=== PATIENT | male | born 1930 | race Caucasian/White ===

== ENCOUNTER 2020-09-28 18:09 | Emergency (ER) | payer OTHER ==
[2020-09-28 18:36] LABS: Protime INR 1.45
[2020-09-28 18:38] LABS: Absolute Lymphocytes (CBC) 1.4 K/uL (0.7-4.9); Basophils % 0.4 % (0-1.3); Hematocrit 24.4 % (39.6-49.0); RBC Red Blood Cell Count 3.61 M/uL (4.33-5.43)
[2020-09-28 18:53] LABS: Albumin 3.1 g/dL (3.4-5.0); Bilirubin Direct 0.2 mg/dL (0-0.2); Bilirubin Total 0.3 mg/dL (0.2-1.0); Potassium 4.8 mmol/L (3.5-5.1); Protein, Total 6.9 g/dL (6.4-8.2); Troponin (Emerg Dept Use Only) 0.03 ng/mL (0.0-0.045)
--- NOTE | 2020-09-28 19:17 | RAD REPORT ---
EXAM DESCRIPTION: RAD - Chest Single View - 09/28/2020 6:36 pm CLINICAL HISTORY: CHEST PAIN COMPARISON: No comparisons FINDINGS: No evidence of edema or pneumonia. Cardiomegaly. Pacemaker. Atherosclerosis.No acute osseo us abnormality. No significant pleural effusions or pneumothorax. IMPRESSION: No acute cardiopulmonary disease.
[2020-09-28 19:32] LABS: Blood Morphology Comment NOTED (NOT SEEN); Hypochromasia 1+; Platelet Estimate DECR; White Blood Cell Scan OK (OK)
--- NOTE | 2020-09-28 20:43 | RAD REPORT ---
EXAM DESCRIPTION: CT - Abdomen Pelvis Wo Contrast - 09/28/2020 8:27 pm CLINICAL HISTORY: Abdominal pain. Abd pain;GI bleed COMPARISON: No comparisons TECHNIQUE: CT imaging of the abdomen and pelvis was performed without contrast. Solid organ, bowel a nd vascular assessment is limited due to lack of IV and oral contrast. All CT scans are performed using dose optimization technique as appropriate and may include automated exposure control or mA/KV adjustment according to patient size. FINDINGS: Atelectasis versus scarring at the right lung base. Pacemaker leads. Aortic valve calcific ations. Coronary artery calcifications. Small hiatal hernia. No focal liver lesions are identified. The gallbladder is surgically absent. No adrenal masses are se en. No splenic lesions. The pancreas is within normal limits. No stones or hydronephrosis. Fat contai mary inguinal hernias. Moderate stool within the rectum. No bowel obstruction, free air, free fluid or abscess. Degenerative changes are present in the spine. IMPRESSION: No acute intra-abdominal or pelvic findings. Incidental findings as noted above. A limited non-contrast examination was performed as detailed.
[2020-09-28] MEDS ORDERED: PANTOPRAZOLE 40 MG INJ ONE (21:41)
--- NOTE | 2020-09-29 01:19 | ER ---
Nurse's Notes [facility] Name: Paolo Gamble Age: 89 yrs Sex: Male : 1930 Arrival Date: 09/28/2020 Time: 18:16 Bed 7 Private MD: Diagnosis: Chest pain, unspecified;GI Bleed Presentation: 09/28 18:28 Chief complaint: EMS states: patient was having bilateral chest pain. complains of ap3 cough X 3 days. patient is from [facility]. Coronavirus screen: Client presents with at least one sign or symptom that may indicate coronavirus-19. Standard/surgical mask placed on the client. Ebola Screen: No symptoms or risks identified at this time. Initial Sepsis Screen: Does the patient meet any 2 criteria? No. Patient's initial sepsis screen is negative. Does the patient have a suspected source of infection? No. Patient's initial sepsis screen is negative. Risk Assessment: Do you want to hurt yourself or someone else? Patient reports no desire to harm self or others. Onset of symptoms was September 28, 2020 at 17:15. Care prior to arrival:. 18:28 Method Of Arrival: EMS: [facility] ap3 18:28 Acuity: JOSELYN 3 ap3 Historical: - Allergies: 18:30 No Known Allergies; ap3 - Home Meds: 18:30 Eliquis oral [Active]; unknown BP meds [Active]; unknown DM medications [Active]; ap3 - PMHx: 18:30 Hypertensive disorder; Diabetes mellitus; ap3 - PSHx: 18:30 pacemaker; ap3 - Immunization history:: Adult Immunizations up to date, Client reports receiving the 2nd dose of the Covid vaccine, Date received: June 2020. - Social history:: Smoking status: Patient denies any tobacco usage or history of. Screenin:30 Abuse screen: Denies threats or abuse. Nutritional screening: No deficits noted. ap3 Tuberculosis screening: No symptoms or risk factors identified. Fall Risk None identified. Assessment: 18:32 General: Appears in no apparent distress. comfortable, Behavior is calm, cooperative, ap3 appropriate for age. Pain: Pain does not radiate. Pain: Complains of pain in right lateral anterior chest and left lateral anterior chest Pain currently is 4 out of 10 on a pain scale. Pain began 1 day ago. Neuro: Level of Consciousness is awake, alert, obeys commands, Oriented to person, place, time, situation, Appropriate for age Moves all extremities. Gait is steady, Speech is normal. Cardiovascular: Reports chest pain, Denies shortness of breath, Capillary refill < 3 seconds Patient's skin is warm and dry. Respiratory: Reports cough that is since 2-3 days Airway is patent Respiratory effort is even, unlabored, Respiratory pattern is regular, symmetrical. GI: No signs and/or symptoms were reported involving the gastrointestinal system. : No signs and/or symptoms were reported regarding the genitourinary system. 19:00 Reassessment: Patient appears in no apparent distress at this time. Patient and/or jb4 family updated on plan of care and expected duration. Pain level reassessed. Patient is alert, oriented x 3, equal unlabored respirations, skin warm/dry/pink. 20:00 Reassessment: Patient appears in no apparent distress at this time. Patient and/or jb4 family updated on plan of care and expected duration. Pain level reassessed. Patient is alert, oriented x 3, equal unlabored respirations, skin warm/dry/pink. 21:00 Reassessment: Patient appears in no apparent distress at this time. Patient and/or jb4 family updated on plan of care and expected duration. Pain level reassessed. Patient is alert, oriented x 3, equal unlabored respirations, skin warm/dry/pink. 22:00 Reassessment: Patient appears in no apparent distress at this time. Patient and/or jb4 family updated on plan of care and expected duration. Pain level reassessed. Patient is alert, oriented x 3, equal unlabored respirations, skin warm/dry/pink. 23:00 Reassessment: Patient appears in no apparent distress at this time. Patient and/or jb4 family updated on plan of care and expected duration. Pain level reassessed. Patient is alert, oriented x 3, equal unlabored respirations, skin warm/dry/pink. 09/29 00:00 Reassessment: Patient appears in no apparent distress at this time. Patient and/or jb4 family updated on plan of care and expected duration. Pain level reassessed. Patient is alert, oriented x 3, equal unlabored respirations, skin warm/dry/pink. :00 Reassessment: Patient appears in no apparent distress at this time. Patient and/or jb4 family updated on plan of care and expected duration. Pain level reassessed. Patient is alert, oriented x 3, equal unlabored respirations, skin warm/dry/pink. 02:00 Reassessment: Patient appears in no apparent distress at this time. Patient and/or jb4 family updated on plan of care and expected duration. Pain level reassessed. Patient is alert, oriented x 3, equal unlabored respirations, skin warm/dry/pink. 03:00 Reassessment: Patient appears in no apparent distress at this time. Patient and/or jb4 family updated on plan of care and expected duration. Pain level reassessed. Patient is alert, oriented x 3, equal unlabored respirations, skin warm/dry/pink. 03:30 Reassessment: Patient appears in no apparent distress at this time. Patient and/or jb4 family updated on plan of care and expected duration. Pain level reassessed. Patient is alert, oriented x 3, equal unlabored respirations, skin warm/dry/pink. Report given to EMS, Pt transferred to receiving facility. Vital Signs: 09/28 18:28 BP 105 / 69; Pulse 77; Resp 23; Temp 98.4; Pulse Ox 99% on R/A; Pain 4/10; ap3 19:00 BP 130 / 57; Pulse 78; Resp 18; Pulse Ox 100% on R/A; jb4 20:00 BP 133 / 77; Pulse 75; Resp 16; Pulse Ox 100% on R/A; jb4 22:57 Weight 81.65 kg (R); tt3 23:00 BP 127 / 58; Pulse 68; Resp 18; Pulse Ox 100% on R/A; jb4 09/29 00:00 BP 129 / 52; Pulse 72; Resp 21; Pulse Ox 100% on R/A; jb4 01:00 BP 130 / 52; Pulse 73; Resp 19; Pulse Ox 100% on R/A; jb4 02:00 BP 128 / 59; Pulse 70; Resp 18; Pulse Ox 100% on R/A; jb4 03:00 BP 117 / 62; Pulse 73; Resp 20; Pulse Ox 100% on R/A; jb4 ED Course: 09/28 18:16 Patient arrived in ED. sv 18:25 Elsa Miles, RN is Primary Nurse. ap3 18:25 Inserted saline lock: 22 gauge in left antecubital area, using aseptic technique. Blood ap3 collected. 18:30 Triage completed. ap3 18:30 Arm band placed on right wrist. EKG completed in triage. Results shown to MD. ap3 18:32 Patient has correct armband on for positive identification. Call light in reach. Side ap3 rails up X2. Adult w/ patient. environmental monitoring technician on. Pulse ox on. NIBP on. Door closed. Noise minimized. 18:33 Patient maintains SpO2 saturation greater than 95% on room air. ap3 18:36 XRAY Chest (1 view) In Process Unspecified. EDMS 19:03 Jaden Valiente MD is Attending Physician. mh7 19:09 Primary Nurse role handed off by Elsa Miles, GREGORIO jb4 19:09 Jesus Nation, GREGORIO is Primary Nurse. jb4 20:27 CT Abd/Pelvis - Without Contrast In Process Unspecified. EDMS 21:37 Initiated transfer at [facility] with Adwoa Lizama. Stated she would do a bed check at all tt3 campuses and call back. 22:03 Adwoa Lizama called back and stated they would have to deny the transfer request due to at tt3 multiple campuses. 22:54 Initiated transfer at [facility] with Donaldo. Stated the only campus that may have a bed was tt3 [facility]. Stated he would double check and call back. 23:09 Donaldo with [facility] called back and stated that after checking with administration at the tt3 [place] campus, he was informed that they would have to deny the transfer request due to capacity. 23:25 Initiated transfer at [facility] with Karlie. Was placed on hold while she checked for bed tt3 availability. Was informed that all campuses are at complete capacity. 23:44 Initiated transfer at [facility] with Neli. Was informed that all campuses were at tt3 Level 1 saturation. Meaning, they have no tele, ER, or ICU beds at all campuses per Neli. 23:55 Initiated transfer with Khadra with [facility]. Stated she would call back with their tt3 physician once they are finished in a pts room to do doc to doc consultation with Dr. Valiente regarding the transfer request. 09/29 01:01 Followed up with [facility] regarding the transfer request. Their physician was connected tt3 and the call was connected with Dr. Valiente for consultation. 01:07 Keturah with [facility] stated that once she got admin approval from administration she tt3 would call back and provide that information. 02:11 Fina with [facility] called back with admin approval. The personal care home administrator giving approval tt3 is Flor Mary. The accepting physician is Dr. Orellana. The pt is going to [facility] ER. Nurse to call report to [phone]. 03:30 No provider procedures requiring assistance completed. Patient transferred, IV remains jb4 in place. Administered Medications: 09/28 22:02 Drug: ProTONIX (pantoprazole) 8 mg/hr Route: IV; Rate: 25 ml/hr; Site: left antecubital;jb4 09/29 04:14 Follow up: Response: No adverse reaction; IV Status: Infusion continued upon transfer jb4 09/28 22:02 Drug: ProTONIX (pantoprazole) 80 mg Route: IVP; Site: left antecubital; jb4 22:30 Follow up: Response: No adverse reaction jb4 Outcome: 09/29 01:19 ER care complete, transfer ordered by MD. zhao 03:45 Transferred by ground EMS to other acute care facility: [facility]. Transfer form completed. jb4 X-rays sent w/ patient. 03:45 Condition: stable 03:45 Discharge instructions given to patient, Instructed on the need for transfer, Demonstrated understanding of instructions. 04:31 Patient left the ED. jb4 Signatures: Dispatcher [employer] Es Langford RN RN sv Bryson, James, RN RN jb4 Elsa Miles RN RN ap3 Holmes, Maurice, MD MD Jeet Small tt3
--- NOTE | 2020-09-29 01:19 | EDPHYS ---
Physician Documentation [facility] Name: Paolo Gamble Age: 89 yrs Sex: Male : 1930 Arrival Date: 09/28/2020 Time: 18:16 Bed 7 Private MD: ED Physician Jaden Valiente HPI: 09/28 19:34 This 89 yrs old Male presents to ER via EMS with complaints of Chest Pain. mh7 19:34 The patient or guardian reports chest pain that is located primarily in the anterior mh7 chest wall, bilaterally. Onset: today. The pain does not radiate. Associated signs and symptoms: Pertinent positives: cough, for 3 days, Pertinent negatives: abdominal pain, diaphoresis, dizziness, headache, lower extremity pain, lower extremity swelling, lightheadedness, nausea, near syncope, palpitations, recent travel, shortness of breath, syncope, vomiting. The chest pain is described as sharp. Duration: The patient or guardian reports multiple episodes, that are intermittent, that wax and wane. Modifying factors: The symptoms are alleviated by nothing. the symptoms are aggravated by exertion. Severity of pain: At its worst the pain was moderate today, in the emergency department the pain has improved markedly. Historical: - Allergies: 18:30 No Known Allergies; ap3 - Home Meds: 18:30 Eliquis oral [Active]; unknown BP meds [Active]; unknown DM medications [Active]; ap3 - PMHx: 18:30 Hypertensive disorder; Diabetes mellitus; ap3 - PSHx: 18:30 pacemaker; ap3 - Immunization history:: Adult Immunizations up to date, Client reports receiving the 2nd dose of the Covid vaccine, Date received: June 2020. - Social history:: Smoking status: Patient denies any tobacco usage or history of. ROS: 19:34 Constitutional: Negative for fever, chills, and weight loss, Eyes: Negative for injury, mh7 pain, redness, and discharge, ENT: Negative for injury, pain, and discharge, Neck: Negative for injury, pain, and swelling, Respiratory: Negative for shortness of breath, cough, wheezing, and pleuritic chest pain, Back: Negative for injury and pain, : Negative for injury, bleeding, discharge, and swelling, MS/Extremity: Negative for injury and deformity, Skin: Negative for injury, rash, and discoloration, Neuro: Negative for headache, weakness, numbness, tingling, and seizure, Psych: Negative for depression, anxiety, suicide ideation, homicidal ideation, and hallucinations, Allergy/Immunology: Negative for hives, rash, and allergies, Endocrine: Negative for neck swelling, polydipsia, polyuria, polyphagia, and marked weight changes, Hematologic/Lymphatic: Negative for swollen nodes, abnormal bleeding, and unusual bruising. Exam: 19:34 Constitutional: This is a well developed, well nourished patient who is awake, alert, mh7 and in no acute distress. Head/Face: Normocephalic, atraumatic. Eyes: Pupils equal round and reactive to light, extra-ocular motions intact. Lids and lashes normal. Conjunctiva and sclera are non-icteric and not injected. Cornea within normal limits. Periorbital areas with no swelling, redness, or edema. Neck: Trachea midline, no thyromegaly or masses palpated, and no cervical lymphadenopathy. Supple, full range of motion without nuchal rigidity, or vertebral point tenderness. No Meningismus. Chest/axilla: Normal chest wall appearance and motion. Nontender with no deformity. No lesions are appreciated. Cardiovascular: Regular rate and rhythm with a normal S1 and S2. No gallops, murmurs, or rubs. Normal PMI, no JVD. No pulse deficits. Respiratory: Lungs have equal breath sounds bilaterally, clear to auscultation and percussion. No rales, rhonchi or wheezes noted. No increased work of breathing, no retractions or nasal flaring. Abdomen/GI: Soft, non-tender, with normal bowel sounds. No distension or tympany. No guarding or rebound. No evidence of tenderness throughout. Back: No spinal tenderness. No costovertebral tenderness. Full range of motion. Skin: Warm, dry with normal turgor. Normal color with no rashes, no lesions, and no evidence of cellulitis. MS/ Extremity: Pulses equal, no cyanosis. Neurovascular intact. Full, normal range of motion. Neuro: Awake and alert, GCS 15, oriented to person, place, time, and situation. Cranial nerves II-XII grossly intact. Motor strength 5/5 in all extremities. Sensory grossly intact. Cerebellar exam normal. Normal gait. Psych: Awake, alert, with orientation to person, place and time. Behavior, mood, and affect are within normal limits. Vital Signs: 18:28 BP 105 / 69; Pulse 77; Resp 23; Temp 98.4; Pulse Ox 99% on R/A; Pain 4/10; ap3 19:00 BP 130 / 57; Pulse 78; Resp 18; Pulse Ox 100% on R/A; jb4 20:00 BP 133 / 77; Pulse 75; Resp 16; Pulse Ox 100% on R/A; jb4 22:57 Weight 81.65 kg (R); tt3 23:00 BP 127 / 58; Pulse 68; Resp 18; Pulse Ox 100% on R/A; jb4 0724 00:00 BP 129 / 52; Pulse 72; Resp 21; Pulse Ox 100% on R/A; jb4 01:00 BP 130 / 52; Pulse 73; Resp 19; Pulse Ox 100% on R/A; jb4 02:00 BP 128 / 59; Pulse 70; Resp 18; Pulse Ox 100% on R/A; jb4 03:00 BP 117 / 62; Pulse 73; Resp 20; Pulse Ox 100% on R/A; jb4 MDM: 01:15 Differential diagnosis: acute myocardial infarction, acute pericarditis, anxiety, mh7 coronary artery disease chest wall pain, congestive heart failure costochondritis, myocarditis, pleurisy, pneumonia, pneumothorax. HEART Score: History: Moderately Suspicious (1), ECG: Non specific repolarization disturbance / LBTB / PM (1), Age: > or = 65 years (2), Risk Factors: 1 or 2 risk factors (1), [Hypertension] [DM] Troponin: < or = 1 x Normal Limit (0), Total Score = 5. The patient was not given aspirin in the Emergency Department. Not indicated due to patient's past medical history. Data reviewed: vital signs, nurses notes, EMS record, lab test result(s), cardiac enzymes, CBC, electrolytes, urinalysis, EKG, radiologic studies, CT scan, plain films. Data interpreted: Pulse oximetry: on room air is 100 %. Interpretation: normal. Counseling: I had a detailed discussion with the patient and/or guardian regarding: the historical points, exam findings, and any diagnostic results supporting the discharge/admit diagnosis, the presence of at least one elevated blood pressure reading (>120/80) during this emergency department visit, lab results, radiology results, the need to transfer to another facility, [facility] does not immediately have the required specialist. 01:19 Patient medically screened. [facility] 09/28 18:18 Order name: Basic Metabolic Panel [facility] 09/28 18:18 Order name: CBC with Diff; Complete Time: 19:36 [facility] 09/28 18:18 Order name: LFT's; Complete Time: 19:10 [facility] 09/28 18:18 Order name: Magnesium; Complete Time: 19:10 [facility] 09/28 18:18 Order name: NT PRO-BNP; Complete Time: 19:10 [facility] 09/28 18:18 Order name: PT-INR; Complete Time: 19:10 [facility] 09/28 18:18 Order name: Troponin (emerg Dept Use Only); Complete Time: 19:10 [facility] 09/28 18:18 Order name: Basic Metabolic Panel; Complete Time: 19:10 [facility] 09/28 19:32 Order name: CBC Smear Scan; Complete Time: 19:36 [facility] 09/28 20:10 Order name: Lipase [facility] 09/28 20:11 Order name: Lipase; Complete Time: 22:56 [facility] 09/28 20:23 Order name: Type And Screen [facility] 09/28 18:18 Order name: XRAY Chest (1 view); Complete Time: 19:36 [facility] 09/28 18:18 Order name: EKG; Complete Time: 18:18 [facility] 09/28 18:18 Order name: Cardiac monitoring; Complete Time: 18:25 [facility] 09/28 18:18 Order name: EKG - Nurse/Tech; Complete Time: 18:25 [facility] 09/28 18:18 Order name: IV Saline Lock; Complete Time: 18:25 [facility] 09/28 18:18 Order name: Labs collected and sent; Complete Time: 18:25 [facility] 09/28 18:18 Order name: O2 Per Protocol; Complete Time: 18:25 [facility] 09/28 20:10 Order name: CT Abd/Pelvis - Without Contrast; Complete Time: 21:31 [facility] 09/28 21:23 Order name: Packed RBC Leukored [facility] 09/28 22:09 Order name: ABO/RH no charge; Complete Time: 22:56 [facility] 09/28 22:57 Order name: Amylase, Serum; Complete Time: 23:53 7 09/28 23:21 Order name: SARS-COV-2 RT PCR; Complete Time: 23:53 [facility] 09/28 18:18 Order name: O2 Sat Monitoring; Complete Time: 18:25 [facility] 09/28 22:56 Order name: Transfuse; Complete Time: 23:47 mh7 Administered Medications: 09/28 22:02 Drug: ProTONIX (pantoprazole) 8 mg/hr Route: IV; Rate: 25 ml/hr; Site: left antecubital;[facility] 09/29 04:14 Follow up: Response: No adverse reaction; IV Status: Infusion continued upon transfer [facility] 09/28 22:02 Drug: ProTONIX (pantoprazole) 80 mg Route: IVP; Site: left antecubital; [facility] 22:30 Follow up: Response: No adverse reaction [facility] Disposition Summary: 09/29/20 01:19 Transfer Ordered Transfer Location: Other Acute Care Facility [facility] Reason: Higher level of care [facility] Condition: Stable [facility] Problem: new [facility] Symptoms: have improved 7 Accepting Physician: [place], [place](09/29/20 04:31) jb4 Diagnosis - Chest pain, unspecified 7 - GI Bleed [facility] Forms: - Medication Reconciliation Form 7 - SBAR form 7 Signatures: Dispatcher [employer] EDJesus Greenberg RN RN jb4 Maria G Vernon MD MD ma2 Elsa Miles RN RN ap3 Jaden Valiente MD MD 7 Corrections: (The following items were deleted from the chart) 21:22 20:25 PACKED RBC LEUKORED -1+BB.LAB.BRZ ordered. [facility] ED[facility] 21:22 20:26 ABO/RH typing ordered. [facility] EDMS 21:22 20:26 Antibody Screen ordered. [facility] EDMS 22:12 20:58 CORONAVIRUS+MR.LAB.BRZ ordered. [facility] 09/29 04:31 01:19 [facility]7 jb4
[2020-09-29 05:02] VITALS: TEMP 98.4
[2020-09-29 05:03] VITALS: O2SAT 100
[2020-09-29 05:10] VITALS: BP 130/52
== END 2020-09-29 04:31 ==
LOC: ER 18:09
PROC: 30233N1 Transfusion of Nonautologous Red Blood Cells into Peripheral Vein, Percutaneous Approach (ICD-10-PCS; principal; 2020-09-29)
DX: K92.2 Gastrointestinal hemorrhage, unspecified (principal); I10 Essential (primary) hypertension; E11.9 Type 2 diabetes mellitus without complications; Z79.01 Long term (current) use of anticoagulants; Z20.822 Contact with and (suspected) exposure to COVID-19; Z95.0 Presence of cardiac pacemaker
CPT/HCPCS: 96365; 93005; 85025; 80048; 36415; 82150; 86900; 83735; 86850; 85610; 86901; 80076; 84484; 83690; 83880; 74176; 71045; 99285; 96366; 36430; U0003; C9113; P9016